=== PATIENT | female | born 1940 | race American Indian/Alaskan Native ===

== ENCOUNTER 2016-10-18 13:47 | Outpatient (CLI) | payer MEDICARE ==
--- NOTE | 2016-10-18 15:05 | XRay Report ---
LUMBAR SPINE RADIOGRAPHS INDICATION: Lumbar stenosis. COMPARISON: 07/17/2014. FINDINGS: AP and lateral lumbar spine radiographs with the patient upright again demonstrate posterior bilateral pedicle rods and screws stabilizing L4-L5. Grade 2 anterolisthesis of L4 over L5 by approximately 1.2 cm again noted with severe disc narrowing and mild adjacent sclerosis. Superior compression/partial loss of L5 vertebral body height again seen. Posterior decompression at L4 also now possible. Demineralized bones. Normal remainder imaged spine. Intact SI joints. Nonobstructive bowel gas pattern. CONCLUSION: Possible interval posterior decompression at L4 with other L4-L5 degenerative and postsurgical changes again noted, as described. Please correlate. Thank you for the opportunity to participate in this patient's care.
== END 2016-10-18 13:48 | disposition home or self-care (01) ==
LOC: XRAY 13:47
PROVIDERS: ATTEND Physician Assistant
DX: M48.06 Spinal stenosis, lumbar region (principal); M47.896 Other spondylosis, lumbar region; M53.86 Other specified dorsopathies, lumbar region; I10 Essential (primary) hypertension; D64.9 Anemia, unspecified
CPT/HCPCS: 72100

== ENCOUNTER 2016-11-17 08:15 | Outpatient (CLI) | payer MEDICARE ==
--- NOTE | 2016-11-17 11:22 | Fluoroscopy Report ---
Contrast upper GI: History: Left upper quadrant pain. Findings: Transit of barium through the esophagus is normal. No hiatal hernia. Mild reflux. Normal gastric emptying. Duodenal bulb and sweep appears unremarkable. No intrinsic filling defects in the stomach or the duodenum. Impression: Mild gastroesophageal reflux.
== END 2016-11-17 08:16 | disposition home or self-care (01) ==
LOC: FLUORO 08:15
PROVIDERS: ATTEND Internal Medicine Gastroenterology
DX: K21.9 Gastro-esophageal reflux disease without esophagitis (principal); I10 Essential (primary) hypertension; D64.9 Anemia, unspecified
CPT/HCPCS: 74241